=== PATIENT | male | born 1985 | race African-American/Black ===

== ENCOUNTER 2023-11-29 19:15 | Emergency (ER) | payer SELFPAY ==
--- NOTE | 2023-11-29 19:54 | EDPHYS ---
Physician Documentation [facility] Name: Marquis Montano Age: 38 yrs Sex: Male : 1985 Arrival Date: 11/29/2023 Time: 19:15 Bed Treatment Private MD: ED Physician Ellie Calix HPI: 11/29 00:17 This 38 yrs old Black Male presents to ER via Ambulatory with complaints of Foot Pain. sb4 00:17 Patient reports chronic pain in his right middle toe but states it has become worse sb4 this week. He states that he has noticed a hard spot on the bottom of it only hurts when he is walking, does not hurt when he is resting. He is coming in looking for advice on ways to make it feel better. Historical: - Allergies: 11/28 19:37 No Known Allergies; ha1 - PMHx: 19:37 None; ha1 - Immunization history:: Adult Immunizations up to date. - Infectious Disease History:: Denies. - Social history:: Smoking status: Patient reports the use of cigarette tobacco products, denies chronic smoking, but will smoke occasionally. ROS: 11/29 00:17 Constitutional: Negative for fever, chills, and weight loss, sb4 MS/extremity: Positive for Per HPI, All other systems are negative, Exam: 00:17 Constitutional: This is a well developed, well nourished patient who is awake, alert, sb4 and in no acute distress. Head/Face: Normocephalic, atraumatic. Eyes: Extra-ocular motions intact. Periorbital areas with no swelling, redness, or edema. ENT: Mucous membranes moist. 00:17 Skin: Callus noted to plantar aspect of distal right third toe, no skin breakdown or cellulitis. Vital Signs: 11/28 19:35 BP 133 / 89; Pulse 85; Resp 17 S; Temp 97.9(T); Pulse Ox 100% on R/A; Weight 83.91 kg; ha1 Lacy Coma Score: 19:40 Eye Response: spontaneous(4). Motor Response: obeys commands(6). Verbal Response: km8 oriented(5). Total: 15. MDM: 19:45 Patient medically screened. sb4 11/29 00:17 Data reviewed: vital signs, nurses notes, and as a result, I will discharge patient. sb4 Counseling: I had a detailed discussion with the patient and/or guardian regarding the historical points, exam findings, and any diagnostic results supporting the discharge/admit diagnosis, the need for outpatient follow up, a cone former, If symptoms persist, to return to the emergency department if symptoms worsen or persist or if there are any questions or concerns that arise at home. 11/28 19:50 Order name: [facility]. Order: reymundo tape 3rd and 4th toe; Complete Time: 19:54 sb4 Administered Medications: No medications were administered Disposition Summary: 11/29/23 19:53 Discharge Ordered Notes: Location: Home sb4 Problem: an ongoing problem sb4 Symptoms: are unchanged sb4 Condition: Stable sb4 Diagnosis - Pain in foot and toes sb4 Followup: sb4 - With: Jamal Thompson DPM - When: As needed - Reason: Recheck today's complaints, Re-evaluation by your physician Discharge Instructions: - Discharge Summary Sheet sb4 - Corns and Calluses sb4 Forms: - Patient Portal Instructions sb4 - Leadership Thank You Letter sb4 - Work release form km8 Signatures: Kamala Whitehead, RN RN ha1 Nicolle Hurst PAShannonC PASheri sb4
--- NOTE | 2023-11-29 19:54 | ER ---
Nurse's Notes [facility] Name: Marquis Montano Age: 38 yrs Sex: Male : 1985 Arrival Date: 11/29/2023 Time: 19:15 Bed Treatment Private MD: Diagnosis: Pain in foot and toes Presentation: 11/28 19:35 Chief complaint: Patient states: I HAVE A PAIN ON MY LEFT FOOT THAT HAS BEEN THERE FOR ha1 A WHILE BUT THIS WEEK HAS REALLY BEEN BOTHERING ME. Coronavirus screen: Vaccine status: Patient reports being unvaccinated. Ebola Screen: No symptoms or risks identified at this time. Initial Sepsis Screen: Does the patient meet any 2 criteria? No. Patient's initial sepsis screen is negative. Does the patient have a suspected source of infection? No. Patient's initial sepsis screen is negative. Risk Assessment: Do you want to hurt yourself or someone else? Patient reports no desire to harm self or others. Onset of symptoms was November 29, 2023. 19:35 Method Of Arrival: Ambulatory ha1 19:35 Acuity: [place] 4 ha1 Triage Assessment: 19:37 General: Appears comfortable, Behavior is calm, cooperative. Pain: Complains of pain in ha1 left foot Pain does not radiate. Pain at worst was 7 out of 10 on a pain scale. Quality of pain is described as aching. Neuro: Level of Consciousness is awake, alert, obeys commands, Oriented to person, place, time, situation. Cardiovascular: Capillary refill < 3 seconds Patient's skin is warm and dry. Respiratory: Airway is patent Respiratory effort is even, unlabored, Respiratory pattern is regular, symmetrical. Historical: - Allergies: 19:37 No Known Allergies; ha1 - PMHx: 19:37 None; ha1 - Immunization history:: Adult Immunizations up to date. - Infectious Disease History:: Denies. - Social history:: Smoking status: Patient reports the use of cigarette tobacco products, denies chronic smoking, but will smoke occasionally. Screenin:40 [facility] ED Fall Risk Assessment (Adult) History of falling in the last 3 months, km8 including since admission No falls in past 3 months (0 pts) Confusion or Disorientation No (0 pts) Intoxicated or Sedated No (0 pts) Impaired Gait No (0 pts) Mobility Assist Device Used No (0 pt) Altered Elimination No (0 pt) Score/Fall Risk Level 0 - 2 = Low Risk Oriented to surroundings, Maintained a safe environment, Educated pt \T\ family on fall prevention, incl call for assistance when getting out of bed, Assessed \T\ reinforced patient's understanding of fall precautions. Abuse screen: Denies threats or abuse. Denies injuries from another. Nutritional screening: No deficits noted. Tuberculosis screening: No symptoms or risk factors identified. Assessment: 19:40 General: Appears in no apparent distress. comfortable, Behavior is calm, cooperative, km8 appropriate for age. Pain: Complains of pain in plantar aspect of left third toe Pain currently is 4 out of 10 on a pain scale. Neuro: Level of Consciousness is awake, alert, obeys commands, Oriented to person, place, time, situation. Cardiovascular: Denies chest pain, shortness of breath, Patient's skin is warm and dry. Respiratory: Airway is patent Respiratory effort is even, unlabored, Respiratory pattern is regular, symmetrical. GI: No signs and/or symptoms were reported involving the gastrointestinal system. : No signs and/or symptoms were reported regarding the genitourinary system. EENT: No signs and/or symptoms were reported regarding the EENT system. Derm: No signs and/or symptoms reported regarding the dermatologic system. Skin is intact, is healthy with good turgor, Skin is dry, Skin is pink, warm \T\ dry. normal, Skin temperature is warm. Musculoskeletal: Range of motion: intact in all extremities, Reports pain in plantar aspect of left third toe. Vital Signs: 19:35 BP 133 / 89; Pulse 85; Resp 17 S; Temp 97.9(T); Pulse Ox 100% on R/A; Weight 83.91 kg; ha1 Lacy Coma Score: 19:40 Eye Response: spontaneous(4). Motor Response: obeys commands(6). Verbal Response: km8 oriented(5). Total: 15. ED Course: 19:17 Patient arrived in ED. mr 19:37 Triage completed. ha1 19:40 Patient has correct armband on for positive identification. Bed in low position. Call km8 light in reach. 19:40 Arm band placed on right wrist. km8 19:43 Felicia Beck RN is Primary Nurse. km8 19:45 [facility] sb4 19:45 Ellie Calix MD is Attending Physician. sb4 19:53 Jamal Thompson DPM is Referral Physician. sb4 20:00 Provided Education on: d/c teaching. km8 20:00 No provider procedures requiring assistance completed. Patient did not have IV access km8 during this emergency room visit. Administered Medications: No medications were administered Medication: 19:40 VIS not applicable for this client. km8 Outcome: :53 Discharge ordered by . sb4 20:00 Patient left the ED. km8 20:00 Discharged to home ambulatory, km8 20:00 Condition: good 20:00 Discharge instructions given to patient, Instructed on discharge instructions, follow up and referral plans. wound care, Demonstrated understanding of instructions, follow-up care, wound care, Signatures: Kim Oconnor, Charles Soto mr Kamala Whitehead, RN RN ha1 Nicolle Hurst PA-C PAShannonC sb4 Felicia Beck, RN RN km8
[2023-11-29 20:54] VITALS: BP 133/89; TEMP 97.9; O2SAT 100
== END 2023-11-29 20:00 | disposition home or self-care (01) ==
LOC: ER 19:15
DX: M79.671 Pain in right foot (principal); M79.674 Pain in right toe(s)
CPT/HCPCS: 99282